=== PATIENT | male | born 1970 | race Caucasian/White ===

== ENCOUNTER 2020-02-24 08:53 | Emergency (ER) | payer MEDICAID ==
[~2020-02-24] VITALS: Ht 185.4 cm; Wt 90.9 kg
[2020-02-24 09:29] LABS: BASOPHILS # (AUTO) 0.1 X10'3 (0-0.2); EOSINOPHILS # (AUTO) 0.3 X10'3 (0-0.9); HEMOGLOBIN 17.6 g/dl (14.0-17.9); MEAN CORPUSCULAR VOLUME 88.8 FL (78-98); NEUTROPHILS # (AUTO) 7.7 X10'3 (1.8-7.7); RED CELL DISTRIBUTION WIDTH 14.1 % (11.5-14.5)
[2020-02-24 09:30] LABS: BASOPHILS % (AUTO) 0.6 % (0-1); EOSINOPHILS % (AUTO) 2.3 % (0-6); HEMATOCRIT 51.1 % (42.0-52.0); LYMPHOCYTES # (AUTO) 1.5 X10'3 (1.1-4.8); LYMPHOCYTES % (AUTO) 13.2 % (21-51); MEAN CORPUSCULAR HEMOGLOBIN 30.6 PG (27.0-31.0); MEAN CORPUSCULAR HGB CONC 34.5 g/dL (33.0-36.5); MEAN PLATELET VOLUME 8.5 FL (7.4-10.4); MONOCYTES # (AUTO) 1.8 X10'3 (0-0.9); MONOCYTES % (AUTO) 15.8 % (2-12); NEUTROPHILS % (AUTO) 68.1 % (42-75); PLATELET COUNT 161 X10'3 (140-440); RED BLOOD COUNT 5.76 X10'6 (4.70-6.10); WHITE BLOOD COUNT 11.2 X10'3 (4.5-11.0)
[2020-02-24] MEDS ORDERED: famotidine/PF 10 mg/ml inj IV ONE (09:40)
[2020-02-24] MEDS ORDERED: ondansetron/PF 4mg/2ml inj IV ONE (09:40)
[2020-02-24] MEDS ORDERED: normal saline 1000ML IV soln IVB ONE ×2 (09:40→10:40)
[2020-02-24] MEDS ORDERED: morphine 4 MG/ML inj SYRINge IV ONE (09:40)
[2020-02-24] MEDS ORDERED: pantoprazole 40 MG vial IV ONE (09:40)
[2020-02-24 09:42] LABS: PARTIAL THROMBOPLASTIN TIME 26 SECONDS (22-32)
[2020-02-24 09:46] LABS: ALANINE AMINOTRANSFERASE 32 U/L (12-78); ALBUMIN 3.8 G/DL (3.4-5.0); ALBUMIN/GLOBULIN RATIO 1.1 (1.1-1.5); ALKALINE PHOSPHATASE 115 IU/L (46-116); ANION GAP 7 (8-16); ASPARTATE AMINO TRANSFERASE 52 U/L (10-37); BILIRUBIN,TOTAL 1.3 MG/DL (0.1-1.0); BLOOD UREA NITROGEN 11 MG/DL (7-18); BUN/CREATININE RATIO 7.6 (5.4-32.0); CALCIUM 11.7 MG/DL (8.5-10.1); CHLORIDE 102 MMOL/L (99-107); CREATININE 1.44 MG/DL (0.60-1.10); GLUCOSE 135 MG/DL (70-104); POTASSIUM 3.5 MMOL/L (3.5-5.1); SODIUM 140 MMOL/L (135-145); TOTAL CARBON DIOXIDE 30.9 MMOL/L (24-32); TOTAL PROTEIN 7.3 G/DL (6.4-8.2); eGFR 52 ML/MIN
[2020-02-24 09:57] LABS: LIPASE 83 U/L (73-393)
[2020-02-24] MEDS ORDERED: iohexol 350MG/ML 100ml bottle IV ONE (10:54)
[2020-02-24 10:57] LABS: D-DIMER 0.28 MG/L FEU (0-0.50)
[2020-02-24 12:41] VITALS: BP 158/108
== END 2020-02-24 12:49 | disposition home or self-care (01) ==
LOC: ER 08:54
DX: K29.70 Gastritis, unspecified, without bleeding (principal); R07.89 Other chest pain; E86.0 Dehydration; E80.6 Other disorders of bilirubin metabolism; K21.9 Gastro-esophageal reflux disease without esophagitis; F17.200 Nicotine dependence, unspecified, uncomplicated; Z72.89 Other problems related to lifestyle; Z88.0 Allergy status to penicillin
CPT/HCPCS: 36415; 71045; 71275; 74174; 74176; 80053; 83690; 84484; 85025; 85379; 85610; 85730; 93005; 96361; 96374; 96375; 99285; C9113; J2270; J2405; J3490; J7030; Q9967